=== PATIENT | female | born 1975 | race American Indian/Alaskan Native ===

== ENCOUNTER 2020-03-25 04:55 | Emergency (ER) | payer OTHER ==
[2020-03-25 05:03] VITALS: BP 139/90
--- NOTE | 2020-03-25 06:41 | Emergency Department Report ---
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 States that she hit her shoulder on the bookshelf resulting in pain and what she felt was swelling and over the last couple days tingling sensations to the fingertip which made her blood work and she sought further evaluation and treatment. She is initially evaluated at an urgent care and states that no x-rays were done is a 91 to be rechecked. She reports no fevers chills or sweats at current ED Review of Systems ROS: Stated complaint: LEFT ARM/FINGERS PAIN/TINGLING Other details as noted in HPI Comment: All other systems reviewed and negative ED Past Medical Hx - Past Medical History Previous Medical History?: Yes Hx HIV: Yes - Surgical History Past Surgical History?: Yes Additional Surgical History: Myomectomy - Social History Smoking Status: Current Every Day Smoker Substance Use Type: None Upper Extremity Exam - Exam General: Vital signs noted. No distress. Alert and acting appropriately. Head and Torso: No HEENT Abnormality, No Neck Tenderness, No Chest/Lungs Abnormality, No Abdominal Tenderness, No Back Tenderness Shoulder Exam: Yes Normal Range of Motion in Shoulder, No Shoulder Tenderness, No Clavicle Tenderness, No Shoulder Deformity, No AC Joint Tenderness (Full range of motion Gorman test Neer's test Fults's test is normal minimal pain with palpation to the lateral deltoid. No ecchymosis noted) Arm Exam: No Arm/Humerus Tenderness, No Arm Deformity Elbow: No Elbow Tenderness, No Normal Range of Motion in Elbow, No Elbow Deformity Forearm: No Forearm Tenderness, No Forearm Deformity, No Pain with Pronation, No Pain with Supination Wrist: Yes Normal ROM in Wrist, No Wrist Tenderness, No Wrist Deformity, No Snuffbox Tenderness, No Pain with Axial Thumb Compression Hand: Yes Normal ROM in Digit(s), No Hand Tenderness, No Hand Deformity, No Digit Tenderness, No Digit(s) Deformity, No Tendon Dysfunction CMS Exam: Yes Normal Distal Pulses (Sharp and soft touch DTRs are intact), Yes Normal Capillary Refill, Yes Normal Distal Sensation, No Broken Skin ED Course Vital Signs 03/25/20 05:01 Temperature 98.3 F Pulse Rate 93 H Respiratory 18 Rate Blood Pressure 139/90 O2 Sat by Pulse 95 Oximetry Critical care attestation.: If time is entered above; I have spent that time in minutes in the direct care of this critically ill patient, excluding procedure time. ED Disposition Clinical Impression: Neuropathy, upper extremity Disposition: DC-01 TO HOME OR SELFCARE Is pt being admited?: No Does the pt Need Aspirin: No Condition: Stable Instructions: Peripheral Neuropathy (ED), RICE Therapy (ED) Referrals: KARTIK MAYFIELD MD [Primary Care Provider] - 3-5 Days
== END 2020-03-25 06:45 | disposition home or self-care (01) ==
LOC: ED 04:55
DX: G62.9 Polyneuropathy, unspecified (principal); F17.200 Nicotine dependence, unspecified, uncomplicated; Z98.890 Other specified postprocedural states; Z79.899 Other long term (current) drug therapy
CPT/HCPCS: 99282